=== PATIENT | male | born 1975 | race Hispanic/Latino ===

== ENCOUNTER 2018-03-25 09:45 | Emergency (ER) | payer OTHER, SELFPAY ==
[2018-03-25 10:36] LABS: #Eosinphils 0.1 thou/uL (0.0-0.7); #Lymphocytes 0.8 thou/uL (1.20-3.40); #Monocytes 0.5 thou/uL (0.11-0.59); #Neutrophils 9.7 thou/uL (1.40-6.50); %Eosinophils 0.7 % (0.0-10.0); %Lymphocytes 7.4 % (21.0-51.0); %Monocytes 4.5 % (0.0-10.0); %Neutrophils 87.4 % (42.0-75.0); Hemoglobin 15.5 g/dL (14.0-18.0); Mean Corpuscular HGB CONC 34.1 g/dL (32.0-36.0); Mean Corpuscular Hemoglobin 30.6 pg (27.0-31.0); Mean Corpuscular Volume 89.6 fL (78.0-98.0); Mean Platelet Volume 7.3 fL (7.4-10.4); Platelet Count 224 thou/uL (130-400); RBC Distribution Width 11.3 % (11.5-14.5); Red Blood Cell (RBC) Count 5.07 mill/uL (4.70-6.10); White Blood Cell (WBC) Count 11.1 thou/uL (4.8-10.8)
[2018-03-25] MEDS ORDERED: Meclizine HCl 25 MG TAB ONE (11:01)
[2018-03-25 11:10] LABS: Albumin 4.6 g/dL (3.5-5.0)
[2018-03-25 11:11] LABS: Chloride 103 mmol/L (98-107)
[2018-03-25 11:12] LABS: Calcium 9.8 mg/dL (7.8-10.44)
[2018-03-25 11:13] LABS: Globulin 3.1 g/dL (2.4-3.5); Glucose 133 mg/dL (70-105); Protein, Total 7.7 g/dL (6.0-8.3)
[2018-03-25 11:14] LABS: Anion Gap 12 mmol/L (10-20); Bilirubin, Total 0.6 mg/dL (0.2-1.2); Carbon Dioxide 27 mmol/L (22-29)
[2018-03-25 11:15] LABS: Alkaline Phosphatase 73 U/L (40-150)
[2018-03-25 11:16] LABS: Calc. Creatinine Clearance 0 mL/min (70-130); Estimated GFR-MDRD Greater than 90
[2018-03-25 11:17] LABS: BUN (Urea Nitrogen) 12 mg/dL (8.9-20.6)
[2018-03-25 11:18] LABS: ALT (SGPT) 15 U/L (8-55); AST (SGOT) 18 U/L (5-34)
[2018-03-25 11:19] LABS: Lipase 17 U/L (8-78)
[2018-03-25 11:22] LABS: Sodium 138 mmol/L (136-145)
--- NOTE | 2018-03-28 13:33 | EKG ---
Test Reason : Blood Pressure : / mmHG Vent. Rate : 069 BPM Atrial Rate : 069 BPM P-R Int : 114 ms QRS Dur : 108 ms QT Int : 392 ms P-R-T Axes : 067 -13 064 degrees QTc Int : 420 ms Normal sinus rhythm RSR' or QR pattern in V1 suggests right ventricular conduction delay Borderline ECG Confirmed by TAMANNA REN, SEBASTIAN ([id number]), marketing editor SHAILA CHAPMAN ([id number]) on 03/28/2018 1:32:53 PM Referred By: Confirmed By:SEBASTIAN NOLEN MD
== END 2018-03-25 12:20 | disposition home or self-care (01) ==
LOC: ERS 09:45
DX: J06.9 Acute upper respiratory infection, unspecified (principal); H11.159 Pinguecula, unspecified eye; H81.10 Benign paroxysmal vertigo, unspecified ear; R73.03 Prediabetes
CPT/HCPCS: 36415; 36416; 80053; 83690; 85025; 93005; 96360

== ENCOUNTER 2025-01-31 07:45 | Outpatient (CLI) | payer BC | END 2025-01-31 07:46 | disposition home or self-care (01) | LOC: NM 07:45 | PROVIDERS: ATTEND Student in an Organized Health Care Education/Training Program | DX: M89.9 Disorder of bone, unspecified (principal) | CPT/HCPCS: 78306; A9503 ==